=== PATIENT | female | born 1960 | race Two or more races ===

== ENCOUNTER 2017-04-02 13:04 | Emergency (ER) | payer MEDICAID ==
[~2017-04-02] VITALS: Ht 162.6 cm; Wt 97.1 kg
[~2017-04-02 13:04] MED LIST: AMLO2.5T PO; ASPI81TA2 PO; CANA100T PO; CHOL100044 PO; CITA10TA17 PO; CLON0.1T PO; GABA-532 PO; GLIM2TAB2 PO; LOSA1TAB36 PO; METF500T4 PO; OMEP10CA4 PO; PENT400T2 PO; SIMV20TA6 PO; ZOLP5TAB7 PO
--- NOTE | 2017-04-02 13:55 | NUR ---
PT TAKEN TO CT.
--- NOTE | 2017-04-02 14:33 | NUR ---
Patient discharged to home in stable condition. Written and verbal after care instructions given. Patient verbalizes understanding of instruction.
[2017-04-02 14:36] VITALS: BP 115/89
== END 2017-04-02 14:37 | disposition home or self-care (01) ==
LOC: ER 13:08
DX: S00.03XA Contusion of scalp, initial encounter (principal); E11.9 Type 2 diabetes mellitus without complications; I10 Essential (primary) hypertension; F17.200 Nicotine dependence, unspecified, uncomplicated; Z90.89 Acquired absence of other organs; Z79.82 Long term (current) use of aspirin; W22.8XXA Striking against or struck by other objects, initial encounter; Y93.89 Activity, other specified; Y92.481 Parking lot as the place of occurrence of the external cause; Y99.9 Unspecified external cause status
CPT/HCPCS: 70450; 99284; A4606; Z7610

== ENCOUNTER 2025-02-20 13:06 | Emergency (ER) | payer MEDICARE, OTHER ==
[~2025-02-20] VITALS: Ht 165.1 cm; Wt 81.6 kg
[~2025-02-20 13:06] MED LIST changes: -AMLO2.5T PO; +AMLO2.5T4 PO; +ASPI-1169 PO; -ASPI81TA2 PO; -GLIM2TAB2 PO; +GLIM2TAB31 PO; +METF-440 PO; -METF500T4 PO; -OMEP10CA4 PO; +OMEP10CA5 PO; +PENT400T17 PO; -PENT400T2 PO; +SIMV-46 PO; -SIMV20TA6 PO; -ZOLP5TAB7 PO; +ZOLP5TAB8 PO
[2025-02-20] MEDS ORDERED: LIDO30AD10 TP (13:49)
[2025-02-20] MEDS ORDERED: HYDR-4303 PO (13:49)
[2025-02-20] MEDS ORDERED: PRED20TA PO (13:49)
[2025-02-20] MEDS ORDERED: dexaMETHasone SOD PHOSPHATE 1 ML ONE (13:54)
[2025-02-20] MEDS ORDERED: LIDOCAINE 5% (PATCH) 1 EA PATCH TP ONE (13:54)
[2025-02-20] MEDS ORDERED: KETOROLAC TROMETHAMINE 15 MG/ML VIAL ONE (13:54)
[2025-02-20] MEDS: LIDOCAINE 5% (PATCH) 1 EA PATCH TP STA (14:01)
[2025-02-20] MEDS: KETOROLAC TROMETHAMINE 15 MG/ML VIAL IM ONE (14:02)
[2025-02-20] MEDS: dexaMETHasone SOD PHOSPHATE 10 MG/ML VIAL IM ONE (14:02)
[2025-02-20 14:12] VITALS: BP 132/54; TEMP 98.1; O2SAT 98
[2025-02-20] MEDS ORDERED: IBUP-1955 PO (16:01)
== END 2025-02-20 14:14 | disposition home or self-care (01) ==
LOC: ER 13:11
DX: M54.41 Lumbago with sciatica, right side (principal); E11.9 Type 2 diabetes mellitus without complications; F17.200 Nicotine dependence, unspecified, uncomplicated; I10 Essential (primary) hypertension; Z79.52 Long term (current) use of systemic steroids; Z79.82 Long term (current) use of aspirin; Z79.84 Long term (current) use of oral hypoglycemic drugs; Z79.899 Other long term (current) drug therapy; Z90.89 Acquired absence of other organs; Z86.79 Personal history of other diseases of the circulatory system; Z86.59 Personal history of other mental and behavioral disorders
CPT/HCPCS: 99284; 96372; J1885; J1100